=== PATIENT | male | born 1995 | race Caucasian/White ===

== ENCOUNTER 2018-05-19 06:51 | Day surgery (SDC) | payer OTHER ==
[~2018-05-19 06:51] MED LIST: LR 1,000 ML IV
[2018-05-19] MEDS ORDERED: MIDAZOLAM INJ 2 MG/2 ML VIAL (J2250) As Ordered (07:44)
[2018-05-19] MEDS ORDERED: fentaNYL 100 MCG/2 ML INJECTION (J3010) As Ordered ×2 (07:44→08:45)
[2018-05-19] MEDS ORDERED: PROPOFOL 200 MG/20 ML VIAL As Ordered ×2 (07:45→08:50)
[2018-05-19] MEDS ORDERED: LIDOCAINE 2% INJ 100 MG/5 ML SDV (FOR ANES.) As Ordered (07:45)
[2018-05-19] MEDS ORDERED: ROCURONIUM BROMIDE 50 MG/5 ML VIAL As Ordered ×2 (07:45→08:50)
[2018-05-19] MEDS ORDERED: ONDANSETRON 4MG/2ML VIAL (J2405) As Ordered (08:43)
[2018-05-19] MEDS ORDERED: dexameTHASONE 4 MG/ML 1ML VIAL (J1100) As Ordered ×2 (08:43)
[2018-05-19] MEDS: EPINEPHrine 1MG/ML INJ 30ML MD-VIAL As Ordered (08:56)
[2018-05-19] MEDS: METHYLENE BLUE 0.5% (5MG/ML) 10 ML AMP (PROVAYBLUE)(Q9968 PER 1MG) As Ordered (08:56)
[2018-05-19] MEDS: LIDOCAINE W/EPINEPHRINE 1% 20ML VIAL As Ordered (08:56)
[2018-05-19] MEDS ORDERED: HYDROMORPHONE HCL 0.5 MG/ 0.5 ML SYRINGE (J1170 PER 1) IV (09:15)
[2018-05-19] MEDS ORDERED: ONDANSETRON 4MG/2ML VIAL (J2405) IV (09:15)
[2018-05-19] MEDS ORDERED: ACETAMINOPH W/CODEINE #3 TAB UD PO (09:15)
[2018-05-19] MEDS ORDERED: LR 1,000 ML IV ×2 (09:15)
[2018-05-19] MEDS ORDERED: fentaNYL 100 MCG/2 ML INJECTION (J3010) IV (09:15)
[2018-05-19] MEDS: PERCOCET 5MG/325MG TAB PO (09:29)
== END 2018-05-19 10:11 | disposition home or self-care (01) ==
LOC: M SDC 06:51
DX: J31.0 Chronic rhinitis (principal)
CPT/HCPCS: 30802

== ENCOUNTER 2019-07-27 22:01 | Emergency (ER) | payer OTHER ==
[~2019-07-27] VITALS: Ht 175.3 cm; Wt 89.5 kg
[~2019-07-27 22:01] MED LIST changes: +CELE50CA PO; -LR 1,000 ML IV; +NORT25CA2 PO
[2019-07-27] MEDS ORDERED: SUMA25TA3 PO (22:09)
[2019-07-27] MEDS ORDERED: ZANA2CAP PO (22:09)
[2019-07-27] MEDS ORDERED: ONDANSETRON 4 MG ORAL DISINTEGRATING TAB (Q0162 PER 1MG) PO ONE (23:15)
[2019-07-27] MEDS ORDERED: KETOROLAC 60 MG/2 ML VIAL (J1885) IM ONE (23:15)
[2019-07-27] MEDS ORDERED: ACETAMINOPHEN 325 MG TAB PO ONE (23:15)
[2019-07-27] MEDS ORDERED: KETO10TAB PO (23:46)
[2019-07-27 23:55] VITALS: BP 133/87
== END 2019-07-28 00:03 | disposition home or self-care (01) ==
LOC: M ED 22:01
DX: G43.909 Migraine, unspecified, not intractable, without status migrainosus (principal); T50.B95A Adverse effect of other viral vaccines, initial encounter; Z87.891 Personal history of nicotine dependence; Z79.899 Other long term (current) drug therapy
CPT/HCPCS: 96372; 99283; J1885; Q0162